=== PATIENT | male | born 1975 | race Two or more races ===

== ENCOUNTER 2018-06-30 08:39 | Outpatient (CLI) | payer OTHER | END 2018-06-30 08:42 | disposition home or self-care (01) | LOC: SONOGRAMA 08:39 | DX: E04.1 Nontoxic single thyroid nodule (principal) ==

== ENCOUNTER → 2020-06-28 15:17 | Outpatient (CLI) | payer OTHER | END | disposition home or self-care (01) | LOC: LAB 15:17 | PROVIDERS: ATTEND General Practice | DX: J11.1 Influenza due to unidentified influenza virus with other respiratory manifestations (principal); Z20.828 Contact with and (suspected) exposure to other viral communicable diseases; R07.0 Pain in throat; R53.81 Other malaise ==